=== PATIENT | male | born 1950 | race Caucasian/White ===

== ENCOUNTER 2024-07-28 05:41 | Day surgery (SDC) | payer MEDICARE, MEDICAID ==
[2024-07-28] VITALS (8 sets, daily range): BP systolic 122–146; BP diastolic 69–87; PULSE 75–84; RESP 12–20; TEMP 97.7; O2SAT 93–98
[~2024-07-28] VITALS: Ht 175.3 cm; Wt 65.2 kg
[2024-07-28] MEDS: cefazolin 2gm/D5W 100mL 100 ML IV ONE (05:30)
[~2024-07-28 05:41] MED LIST: ALBU18HF2 INH; AMIT25TA9 PO; ASPI81TA52 PO; ATOR10TA70 PO; BRAIN HEALTH; CELE-127 PO; CENTRUM SILVER; DIAZ5TAB4 PO; DIPH25CA51 PO; FERR325T34 PO; FLUT1BLS16 INH; GALC120P SQ; HYDR12.55 PO; IBUP-1985 PO; LORA10TA7 PO; MAG; REPLENEX; TRAM50TA2 PO; UBRO100T PO; VILA20TA2 PO; VIT D; [UNRECOGNIZED DRUG - CODE] PO; [UNRECOGNIZED DRUG - OTHER]
[2024-07-28] MEDS: ringers solution, lacted 1,000 ML IV SCH (06:37)
[2024-07-28] MEDS: famotidine 20mg tablet PO ONE (06:37)
[2024-07-28] MEDS ORDERED: bacitracin 15gm ointment TP ONE (07:01)
[2024-07-28] MEDS ORDERED: LIDOcaine 1% w/EPI 1:100,000 inj. MDV 50 ML VIAL ONE (07:01)
[2024-07-28] MEDS ORDERED: BUPIVAcaine 0.5% inj/PF 0 ML ONE (07:01)
[2024-07-28 07:17] LABS: BASOPHILS # (AUTO) 0.1 X10'3 (0-0.2); BASOPHILS % (AUTO) 1.4 % (0-1); EOSINOPHILS # (AUTO) 0.5 X10'3 (0-0.9); EOSINOPHILS % (AUTO) 6.7 % (0-6); LYMPHOCYTES # (AUTO) 1.8 X10'3 (1.1-4.8); LYMPHOCYTES % (AUTO) 22.5 % (21-51); MEAN CORPUSCULAR HEMOGLOBIN 31.7 PG (27.0-31.0); MEAN CORPUSCULAR HGB CONC 33.9 g/dL (33.0-36.5); MEAN CORPUSCULAR VOLUME 93.6 FL (78-98); MEAN PLATELET VOLUME 6.6 FL (7.4-10.4); MONOCYTES # (AUTO) 0.7 X10'3 (0-0.9); MONOCYTES % (AUTO) 9.2 % (2-12); NEUTROPHILS # (AUTO) 4.8 X10'3 (1.8-7.7); NEUTROPHILS % (AUTO) 60.2 % (42-75); PRE OP HEMATOCRIT 36.1 % (42.0-52.0); PRE OP HEMOGLOBIN 12.2 g/dL (14.0-17.9); PRE OP PLATELET COUNT 414 X10'3 (140-440); RED BLOOD COUNT 3.85 X10'6 (4.70-6.10); RED CELL DISTRIBUTION WIDTH 14.2 % (11.5-14.5)
[2024-07-28 07:30] LABS: ALKALINE PHOSPHATASE 83 IU/L (46-116); BLOOD UREA NITROGEN 13 MG/DL (7-18); BUN/CREATININE RATIO 13.5 (10.0-20.0); CALCIUM 9.4 MG/DL (8.5-10.1); CHLORIDE 94 MMOL/L (99-107); CREATININE 0.96 MG/DL (0.60-1.10); PRE OP ALT 21 U/L (30-65); PRE OP ANION GAP 8 (8-16); PRE OP AST 20 U/L (10-37); PRE OP BILIRUB, TOTAL 0.2 MG/DL (0.0-1.0); PRE OP GLUCOSE 114 MG/DL (70-104); PRE OP POTASSIUM 3.8 MMOL/L (3.4-5.1); PRE OP SODIUM 131 MMOL/L (135-145); TOTAL CARBON DIOXIDE 29.1 MMOL/L (24-32); TOTAL PROTEIN 7.9 G/DL (6.4-8.2); eCRCL 66 ML/MIN; eGFR 77 ML/MIN
[2024-07-28 07:32] LABS: PRE OP PARTIAL THROMB. TIME 32 SECONDS (22-32); PROTHROMBIN TIME 10.4 SECONDS (9.0-12.0)
[2024-07-28] MEDS ORDERED: sevoflurane 250ml liquid IH ONE (08:35)
[2024-07-28] MEDS ORDERED: fentaNYL /PF 50mcg/ml 5ml ampule ONE (08:37)
[2024-07-28] MEDS ORDERED: midazolam 1 mg/ML 2ml injection ONE (08:37)
[2024-07-28] MEDS ORDERED: ondansetron/PF 4mg/2ml inj IV PRN (08:45)
[2024-07-28] MEDS ORDERED: enalaprilat dihydrate 2.5mg/2ml vial IV PRN (08:45)
[2024-07-28] MEDS ORDERED: morphine 4 MG/ML inj SYRINge IV PRN (08:45)
[2024-07-28] MEDS ORDERED: morphine 2 MG/ML inj. syringe IV PRN (08:45)
[2024-07-28] MEDS ORDERED: ringers solution, lacted 1,000 ML IV SCH (08:45)
[2024-07-28] MEDS ORDERED: proCHLORperazine 10 MG/2 ml inj IV PRN (08:45)
[2024-07-28] MEDS ORDERED: labetalol 20mg/4ml (5mg/ml) syringe IV PRN (08:45)
[2024-07-28] MEDS ORDERED: meperidine/PF 25mg/ml syringe IV PRN ×3 (08:45)
[2024-07-28] MEDS ORDERED: ROPIVAcaine 0.5% (5mg/ml) 30ml vial ONE (08:59)
[2024-07-28] MEDS ORDERED: propofol inj 20 ML IV ONE (09:08)
[2024-07-28] MEDS ORDERED: LIDOcaine 2% (20mg/ml) 5ml vial ONE (09:08)
[2024-07-28] MEDS ORDERED: dexamethasone sod phosphate 4mg/ml inj. ONE (09:08)
[2024-07-28] MEDS ORDERED: ondansetron/PF 4mg/2ml inj ONE (10:11)
[2024-07-28] MEDS: oxyCODONE/APAP 10/325mg tablet PO ONE (11:57)
== END 2024-07-28 12:04 | disposition home or self-care (01) ==
LOC: PAS 05:41
PROVIDERS: ATTEND Podiatrist Foot & Ankle Surgery
DX: M20.41 Other hammer toe(s) (acquired), right foot (principal); I10 Essential (primary) hypertension; E78.5 Hyperlipidemia, unspecified; F41.9 Anxiety disorder, unspecified; F32.A Depression, unspecified; G43.909 Migraine, unspecified, not intractable, without status migrainosus; K21.9 Gastro-esophageal reflux disease without esophagitis; I73.9 Peripheral vascular disease, unspecified; Z86.73 Personal history of transient ischemic attack (TIA), and cerebral infarction without residual deficits; Z79.899 Other long term (current) drug therapy; Z98.890 Other specified postprocedural states; Z88.5 Allergy status to narcotic agent; Z88.8 Allergy status to other drugs, medicaments and biological substances; J43.9 Emphysema, unspecified; G89.18 Other acute postprocedural pain
CPT/HCPCS: 28285; 28750; 36415; 64445; 73630; 80053; 82948; 85025; 85610; 85730; A4618; A6222; A6253; A6402; A6446; A6455; A7000; C1713; J0690; J1100; J2001; J2250; J2405; J2704; J2795; J3010; J3490; J7030; J7120; Z7506; Z7508; Z7512; Z7610; 76000; 80048; A6449

== ENCOUNTER 2025-01-07 15:22 | Inpatient (IN) | payer MEDICARE, MEDICAID ==
[~2025-01-07] VITALS: Ht 167.6 cm; Wt 65.9 kg
[2025-01-07 16:19] LABS: BASOPHILS % (AUTO) 0.5 % (0-1); EOSINOPHILS # (AUTO) 0.2 X10'3 (0-0.9); EOSINOPHILS % (AUTO) 1.9 % (0-6); HEMATOCRIT 38.4 % (42.0-52.0); HEMOGLOBIN 13.1 g/dl (14.0-17.9); LYMPHOCYTES % (AUTO) 19.7 % (21-51); MEAN CORPUSCULAR HEMOGLOBIN 31.5 PG (27.0-31.0); MEAN CORPUSCULAR HGB CONC 34.1 g/dL (33.0-36.5); MEAN CORPUSCULAR VOLUME 92.5 FL (78-98); MEAN PLATELET VOLUME 6.5 FL (7.4-10.4); MONOCYTES % (AUTO) 9.8 % (2-12); NEUTROPHILS % (AUTO) 68.1 % (42-75); PLATELET COUNT 314 X10'3 (140-440); RED BLOOD COUNT 4.15 X10'6 (4.70-6.10); RED CELL DISTRIBUTION WIDTH 14.2 % (11.5-14.5); WHITE BLOOD COUNT 10.3 X10'3 (4.5-11.0)
[2025-01-07 16:20] LABS: APTT 28 SECONDS (22-32); PROTHROMBIN TIME 10.5 SECONDS (9.0-12.0)
[2025-01-07 16:22] LABS: ALANINE AMINOTRANSFERASE 26 U/L (12-78); ALBUMIN 4.9 G/DL (3.4-5.0); ALBUMIN/GLOBULIN RATIO 1.2 (1.1-1.5); ALKALINE PHOSPHATASE 77 IU/L (46-116); ANION GAP 9 (8-16); ASPARTATE AMINO TRANSFERASE 18 U/L (10-37); BILIRUBIN,TOTAL 0.4 MG/DL (0.1-1.0); BLOOD UREA NITROGEN 19 MG/DL (7-18); BUN/CREATININE RATIO 17.9 (10.0-20.0); CALCIUM 9.3 MG/DL (8.5-10.1); CHLORIDE 95 MMOL/L (99-107); CREATININE 1.06 MG/DL (0.60-1.10); GLUCOSE 118 MG/DL (70-104); SODIUM 134 MMOL/L (135-145); TOTAL CARBON DIOXIDE 30.2 MMOL/L (24-32); TOTAL PROTEIN 8.9 G/DL (6.4-8.2); eCRCL 59 ML/MIN; eGFR 69 ML/MIN
[2025-01-07] MEDS: acetaminophen 325mg tablet PO ONE (17:46)
[2025-01-07] MEDS: propranolol 10mg tablet PO ONE (18:36)
[2025-01-07] MEDS: normal saline 1000ML IV soln IVB ONE (19:55)
[2025-01-07] MEDS: aspirin 81mg tab.chew PO ONE (19:58)
[2025-01-07] MEDS ORDERED: magnesium sulf-water 2g/50mL 50 ML IV PRN (20:25)
[2025-01-07] MEDS ORDERED: potassium Cl 40MEQ/1/2NS 520ml 520 ML IV PRN (20:25)
[2025-01-07] MEDS ORDERED: magnesium hydroxide 30ml (MOM) UD suspension PO PRN (20:25)
[2025-01-07] MEDS ORDERED: potassium Cl 20 mEq SR tablet PO PRN ×2 (20:25)
[2025-01-07] MEDS ORDERED: magnesium Cl slow-release 64mg tablet PO PRN (20:25)
[2025-01-07] MEDS ORDERED: magnesium sulf-water 4G/100mL 100 ML IV PRN (20:25)
[2025-01-07] MEDS ORDERED: ondansetron/PF 4mg/2ml inj IV PRN (20:25)
[2025-01-07] MEDS ORDERED: acetaminophen 325mg tablet PO PRN (20:25)
[2025-01-07] MEDS ORDERED: mag hydrox/Alum hydrox/simeth 30ml oral suspension PO PRN (20:25)
[2025-01-07] MEDS: diphenhydrAMINE 50 mg/ml inj IV ONE (20:55)
[2025-01-07] MEDS: proCHLORperazine 10 MG/2 ml inj IM ONE (20:55)
[2025-01-07 21:01] LABS: HEMOGLOBIN A1C 5.1 % (4.5-6.2)
[2025-01-07 21:11] LABS: MAGNESIUM 2.1 MG/DL (1.5-2.4); PHOSPHORUS 3.2 MG/DL (2.3-4.5)
[2025-01-07] MEDS: ketorolac trometh 15mg/ml vial 15 MG/ML ML IV ONE (21:16)
[2025-01-07] MEDS ORDERED: ipratropium/albuterol 3ml nebule NEB PRN (21:40)
[2025-01-07] MEDS ORDERED: albuterol 2.5 MG/3 ML nebule NEB PRN (21:40)
[2025-01-07] MEDS: niCARDipine-NS 40mg/200ml IVPB 200 ML IV SCH (22:52)
[2025-01-07 23:25] VITALS: PULSE 84; RESP 12; O2SAT 99
[2025-01-08] VITALS (9 sets, daily range): BP systolic 92–167; BP diastolic 53–101; PULSE 33–94; RESP 13–23; TEMP 97.6–98.8; O2SAT 95–99
[2025-01-08] MEDS ORDERED: FIOCOC PO (02:24)
[2025-01-08] MEDS ORDERED: TRAZ-256 PO (02:24)
[2025-01-08] MEDS ORDERED: FEXO-397 PO (02:24)
[2025-01-08] MEDS ORDERED: PROP10TA10 PO (02:24)
[2025-01-08] MEDS ORDERED: ATOG60TA PO (02:24)
[2025-01-08] MEDS ORDERED: ATOR10TA87 PO (02:24)
[2025-01-08] MEDS ORDERED: OMEP-419 PO (02:24)
[2025-01-08] MEDS: ketorolac trometh 15mg/ml vial 15 MG/ML ML IV PRN (02:31)
[2025-01-08 03:21] LABS: BASOPHILS # (AUTO) 0.1 X10'3 (0-0.2); BASOPHILS % (AUTO) 0.7 % (0-1); EOSINOPHILS # (AUTO) 0.3 X10'3 (0-0.9); HEMATOCRIT 35.8 % (42.0-52.0); HEMOGLOBIN 12.1 g/dl (14.0-17.9); LYMPHOCYTES # (AUTO) 1.9 X10'3 (1.1-4.8); LYMPHOCYTES % (AUTO) 18.6 % (21-51); MEAN CORPUSCULAR HEMOGLOBIN 31.1 PG (27.0-31.0); MEAN CORPUSCULAR HGB CONC 33.9 g/dL (33.0-36.5); MEAN CORPUSCULAR VOLUME 91.9 FL (78-98); MEAN PLATELET VOLUME 6.3 FL (7.4-10.4); MONOCYTES # (AUTO) 1.1 X10'3 (0-0.9); MONOCYTES % (AUTO) 11.2 % (2-12); NEUTROPHILS # (AUTO) 6.7 X10'3 (1.8-7.7); NEUTROPHILS % (AUTO) 66.5 % (42-75); PLATELET COUNT 276 X10'3 (140-440); RED BLOOD COUNT 3.89 X10'6 (4.70-6.10); RED CELL DISTRIBUTION WIDTH 13.8 % (11.5-14.5); WHITE BLOOD COUNT 10.1 X10'3 (4.5-11.0)
[2025-01-08 03:38] LABS: ALBUMIN 4.2 G/DL (3.4-5.0); ANION GAP 7 (8-16); BLOOD UREA NITROGEN 15 MG/DL (7-18); BUN/CREATININE RATIO 18.3 (10.0-20.0); CALCIUM 8.8 MG/DL (8.5-10.1); CHLORIDE 99 MMOL/L (99-107); CHOL/HDL RATIO 2.4 (0.00-4.99); CHOLESTEROL 141 MG/DL (0-200); CREATININE 0.82 MG/DL (0.60-1.10); GLUCOSE 104 MG/DL (70-104); HDL CHOLESTEROL 58 MG/DL (35-60); LDL CHOLESTEROL 73 MG/DL (50-100); MAGNESIUM 1.8 MG/DL (1.5-2.4); SODIUM 137 MMOL/L (135-145); TOTAL CARBON DIOXIDE 30.9 MMOL/L (24-32); TRIGLYCERIDES 41 MG/DL (20-135); eCRCL 76 ML/MIN; eGFR > 90 ML/MIN
[2025-01-08] MEDS: labetalol 20mg/4ml (5mg/ml) syringe IV ONE (05:10)
[2025-01-08] MEDS: docusate sod 100mg capsule PO SCH (08:00)
[2025-01-08] MEDS: VILAZODONE 20 MG PO SCH (08:00)
[2025-01-08] MEDS: K and/or MAG REPLACEMENT MC SCH (08:00)
[2025-01-08] MEDS: atorvastatin 10mg tablet PO SCH (09:36)
[2025-01-08] MEDS: enoxaparin 40mg/0.4ml syringe SUBCUT SCH (09:36)
[2025-01-08] MEDS: aspirin 81mg, enteric-coated 1 TAB TABLET.DR PO SCH (09:37)
[2025-01-08] MEDS: propranolol 10mg tablet PO SCH (10:20)
[2025-01-08] MEDS: lisinopril 5mg tablet PO SCH (10:23)
[2025-01-08] MEDS ORDERED: hydrALAZINE 20mg/ml inj. IV PRN (11:30)
[2025-01-08] MEDS: amLODIPine 5mg tablet PO ONE (13:20)
[2025-01-08] MEDS: traMADol 50MG tablet PO PRN (13:21)
[2025-01-08] MEDS: acetaminophen 325mg tablet PO PRN (15:55)
[2025-01-08] MEDS: traZODone 150mg tablet PO SCH (19:53)
[2025-01-09 02:00] VITALS: BP 123/77; PULSE 81; RESP 16; TEMP 98.1; O2SAT 98
[2025-01-09 05:00] VITALS: BP 161/74; PULSE 83; RESP 16; TEMP 98.6; O2SAT 97
[2025-01-09 06:15] LABS: ALBUMIN 4.4 G/DL (3.4-5.0); ANION GAP 10 (8-16); BLOOD UREA NITROGEN 19 MG/DL (7-18); BUN/CREATININE RATIO 21.3 (10.0-20.0); CHLORIDE 99 MMOL/L (99-107); CREATININE 0.89 MG/DL (0.60-1.10); GLUCOSE 98 MG/DL (70-104); MAGNESIUM 2.1 MG/DL (1.5-2.4); POTASSIUM 3.7 MMOL/L (3.5-5.1); SODIUM 136 MMOL/L (135-145); TOTAL CARBON DIOXIDE 26.8 MMOL/L (24-32); eCRCL 68 ML/MIN; eGFR 84 ML/MIN
[2025-01-09 06:17] LABS: BASOPHILS # (AUTO) 0.1 X10'3 (0-0.2); BASOPHILS % (AUTO) 0.7 % (0-1); EOSINOPHILS # (AUTO) 0.3 X10'3 (0-0.9); EOSINOPHILS % (AUTO) 3.2 % (0-6); HEMATOCRIT 37.4 % (42.0-52.0); HEMOGLOBIN 12.7 g/dl (14.0-17.9); LYMPHOCYTES # (AUTO) 2.2 X10'3 (1.1-4.8); LYMPHOCYTES % (AUTO) 26.5 % (21-51); MEAN CORPUSCULAR HEMOGLOBIN 31.2 PG (27.0-31.0); MEAN CORPUSCULAR VOLUME 91.8 FL (78-98); MEAN PLATELET VOLUME 6.7 FL (7.4-10.4); MONOCYTES # (AUTO) 0.9 X10'3 (0-0.9); MONOCYTES % (AUTO) 10.3 % (2-12); NEUTROPHILS # (AUTO) 4.9 X10'3 (1.8-7.7); NEUTROPHILS % (AUTO) 59.3 % (42-75); PLATELET COUNT 308 X10'3 (140-440); RED BLOOD COUNT 4.07 X10'6 (4.70-6.10); WHITE BLOOD COUNT 8.3 X10'3 (4.5-11.0)
[2025-01-09] MEDS: lisinopril 20mg tablet PO SCH (07:27)
[2025-01-09] MEDS: amLODIPine 5mg tablet PO SCH (07:28)
[2025-01-09] MEDS ORDERED: NOR5T PO (07:45)
[2025-01-09] MEDS ORDERED: LISI10TA27 PO (07:45)
[2025-01-09 08:00] VITALS: RESP 16; O2SAT 98
[2025-01-09] MEDS: ipratropium 0.5 MG/2.5ML nebule IH SCH (08:24)
[2025-01-09] MEDS: budesonide 0.5mg/2ml UD nebule IH SCH (08:24)
[2025-01-09 08:25] VITALS: PULSE 61; RESP 16; O2SAT 97
[2025-01-09 08:34] VITALS: PULSE 63; RESP 18
[2025-01-09] MEDS: lisinopril 10 MG tablet PO SCH (09:49)
[2025-01-09 10:00] VITALS: BP 152/80; PULSE 67; RESP 16; TEMP 97.5; O2SAT 97
[2025-01-09] MEDS ORDERED: cloNIDine 0.1 mg tablet PO PRN (10:45)
[2025-01-09] MEDS ORDERED: CLON0.1T2 PO (10:45)
== END 2025-01-09 11:45 | disposition home health service (06) | DRG 304 ==
LOC: ER 15:22 → ED HOLD 20:29 → EDBEDREQ 01-08 05:25 → ORTHO 4S 01-08 15:35
PROVIDERS: ADMIT Surgery Surgical Critical Care; ATTEND Nurse Practitioner Family
DX: I16.1 Hypertensive emergency (principal); G93.41 Metabolic encephalopathy; E87.1 Hypo-osmolality and hyponatremia; I49.1 Atrial premature depolarization; J44.9 Chronic obstructive pulmonary disease, unspecified; R04.0 Epistaxis; H93.13 Tinnitus, bilateral; G89.4 Chronic pain syndrome; F32.A Depression, unspecified; F41.9 Anxiety disorder, unspecified; G43.909 Migraine, unspecified, not intractable, without status migrainosus; R29.6 Repeated falls; R27.0 Ataxia, unspecified; B19.20 Unspecified viral hepatitis C without hepatic coma; E78.5 Hyperlipidemia, unspecified; F12.90 Cannabis use, unspecified, uncomplicated; I73.9 Peripheral vascular disease, unspecified; D64.9 Anemia, unspecified; I10 Essential (primary) hypertension; Z86.73 Personal history of transient ischemic attack (TIA), and cerebral infarction without residual deficits; Z98.61 Coronary angioplasty status; Z88.5 Allergy status to narcotic agent; Z88.8 Allergy status to other drugs, medicaments and biological substances; Z87.891 Personal history of nicotine dependence; Z91.85 Personal history of military service
CPT/HCPCS: 36415; 70450; 70544; 70551; 80048; 80053; 80061; 82140; 82607; 82948; 83036; 83735; 84100; 84443; 85025; 85610; 85730; 87081; 93005; 93306; 94640; 94760; 96365; 96372; 96375; 97116; 97161; 99285; A4615; G0378; J0780; J1200; J1650; J1885; J3490; J7030